=== PATIENT | female | born 1965 | race Caucasian/White ===

== ENCOUNTER 2019-06-01 07:14 | Emergency (ER) | payer OTHER ==
[2019-06-01] MEDS ORDERED: Sodium Chloride 0.9% 1,000 ML IV ONE (07:33)
[2019-06-01] MEDS ORDERED: Aspirin 81 MG Tab.Chew PO ONE (07:33)
[2019-06-01] MEDS ORDERED: LORazepam 2 MG/ML SDV IVPUSH ONE (07:45)
[2019-06-01] MEDS ORDERED: Ketorolac 30 MG/ML SDV IVPUSH ONE (07:45)
--- NOTE | 2019-06-01 08:06 | CT ---
INDICATION: Left arm numbness and pain. Pain radiating into the left shoulder and back. TECHNIQUE: Noncontrast head CT. FINDINGS: No intracranial hemorrhage or hydrocephalus. No mass effect or shift of midline structures. No calvarial or skullbase fractures. The included paranasal sinuses and mastoid air cells are clear. IMPRESSION: Negative noncontrast head CT. Please note that all CT scans at this facility use dose modulation, iterative reconstruction, and/or weight-based dosing when appropriate to reduce radiation dose to as low as reasonably achievable. Dictated by Nba Lou MD @ Jun 01 2019 8:04AM Signed by Dr. Nba Lou @ Jun 01 2019 8:05AM
--- NOTE | 2019-06-01 08:08 | CR ---
INDICATION: Pain. Shortness of breath. TECHNIQUE: AP portable chest. FINDINGS: Clear lungs. Normal heart size and pulmonary vascularity. Normal included skeletal thorax. IMPRESSION: Negative AP upright portable chest x-ray. Dictated by Nba Lou MD @ Jun 01 2019 8:05AM Signed by Dr. Nba Lou @ Jun 01 2019 8:06AM
--- NOTE | 2019-06-01 08:11 | EDM.PDOC ---
ED HPI GENERAL MEDICAL PROBLEM - General Chief Complaint: General Stated Complaint: LEFT ARM TINGLING, PAIN ALL OVER Time Seen by Provider: 06/01/19 08:09 Source of Information: Reports: Patient - History of Present Illness INITIAL COMMENTS - FREE TEXT/NARRATIVE: HISTORY AND PHYSICAL: History of present illness: [Patient presents with mid back pain radiating to left arm rated 7 out of 10 worsened by movement of left arm and applied pressure to paraspinous muscles in the left trapezius distribution no fever nausea vomiting chills sweats no chest pain shortness breath headache dizziness palpitation no bowel or urine symptoms no injury or trauma, pain began yesterday ] Review of systems: As per history of present illness and below otherwise all systems reviewed and negative. Past medical history: As per history of present illness and as reviewed below otherwise noncontributory. Surgical history: As per history of present illness and as reviewed below otherwise noncontributory. Social history: No reported history of drug or alcohol abuse. Family history: As per history of present illness and as reviewed below otherwise noncontributory. Physical exam: HEENT: Atraumatic, normocephalic, pupils reactive, negative for conjunctival pallor or scleral icterus, mucous membranes moist, throat clear, neck supple, nontender, trachea midline. Lungs: Clear to auscultation, breath sounds equal bilaterally, chest nontender. Heart: S1S2, regular, negative for clicks, rubs, or JVD. Abdomen: Soft, nondistended, nontender. Negative for masses or hepatosplenomegaly. Negative for costovertebral tenderness. Pelvis: Stable nontender. Genitourinary: Deferred. Rectal: Deferred. Extremities: Atraumatic, negative for cords or calf pain. Neurovascular unremarkable. Neuro: Awake, alert, oriented. Cranial nerves II through XII unremarkable. Cerebellum unremarkable. Motor and sensory unremarkable throughout. Exam nonfocal. Diagnostics: CC CMP UA troponin lipase EKG Chest 1 view ] Therapeutics: [ Toradol Ativan Aspirin EKG Chest 1 view ] Impression: muscle spasm, left shoulder girdle /left trapezius distribution Definitive disposition and diagnosis as appropriate pending reevaluation and review of above. 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: Musculoskeletal History: Reports: Fracture (left ankle) - Infectious Disease History Infectious Disease History: Reports: Chicken Pox - Past Surgical History Head Surgeries/Procedures: Reports: None Female Surgical History: Reports: Section Musculoskeletal Surgical History: Reports: Other (See Below) Social & Family History - Family History Family Medical History: Noncontributory - Tobacco Use Smoking Status *Q: Never Smoker - Caffeine Use Caffeine Use: Reports: None - Recreational Drug Use Recreational Drug Use: No ED ROS GENERAL - Review of Systems Review Of Systems: See Below ED EXAM, GENERAL - Physical Exam Exam: See Below Course - Vital Signs Last Recorded V/S: Last Vital Signs Temp 96.6 F 06/01/19 07:26 Pulse 66 06/01/19 07:26 Resp 17 06/01/19 07:26 BP 124/82 06/01/19 07:26 Pulse Ox 98 06/01/19 07:26 - Orders/Labs/Meds Orders: Active Orders 24 hr Category Date Time Status EKG Documentation Completion [RC] STAT Care 06/01/19 07:34 Active UA RFX HOLLI AND CULT IF INDIC [URIN] Stat Lab 06/01/19 07:33 Ordered Labs: Laboratory Tests 06/01/19 06/01/19 Range/Units 07:28 07:28 WBC 6.04 (4.0-11.0) K/uL RBC 4.93 (4.30-5.90) M/uL Hgb 14.7 (12.0-16.0) g/dL Hct 43.9 (36.0-46.0) % MCV 89.0 (80.0-98.0) fL MCH 29.8 (27.0-32.0) pg MCHC 33.5 (31.0-37.0) g/dL RDW Std Deviation 41.2 (28.0-62.0) fl RDW Coeff of Ellis 13 (11.0-15.0) % Plt Count 230 (150-400) K/uL MPV 9.80 (7.40-12.00) fL Neut % (Auto) 61.8 (48.0-80.0) % Lymph % (Auto) 26.5 (16.0-40.0) % Major % (Auto) 8.4 (0.0-15.0) % Eos % (Auto) 2.6 (0.0-7.0) % Baso % (Auto) 0.7 (0.0-1.5) % Neut # (Auto) 3.7 (1.4-5.7) K/uL Lymph # (Auto) 1.6 (0.6-2.4) K/uL Major # (Auto) 0.5 (0.0-0.8) K/uL Eos # (Auto) 0.2 (0.0-0.7) K/uL Baso # (Auto) 0.0 (0.0-0.1) K/uL Nucleated RBC % 0.0 /100WBC Nucleated RBCs # 0 K/uL Sodium 142 (136-145) mmol/L Potassium 4.1 (3.5-5.1) mmol/L Chloride 105 (98-107) mmol/L Carbon Dioxide 25.7 (21.0-32.0) mmol/L BUN 16 (7.0-18.0) mg/dL Creatinine 0.9 (0.6-1.0) mg/dL Est Cr Clr Drug Dosing 59.11 mL/min Estimated GFR (MDRD) > 60.0 ml/min Glucose 111 H (74-106) mg/dL Calcium 9.1 (8.5-10.1) mg/dL Total Bilirubin 0.5 (0.2-1.0) mg/dL AST 21 (15-37) IU/L ALT 26 (14-63) IU/L Alkaline Phosphatase 81 (46-116) U/L Troponin I < 0.050 (0.000-0.056) ng/mL Total Protein 7.3 (6.4-8.2) g/dL Albumin 3.8 (3.4-5.0) g/dL Globulin 3.5 (2.6-4.0) g/dL Albumin/Globulin Ratio 1.1 (0.9-1.6) Meds: Medications Discontinued Medications Generic Name Dose Route Start Last Admin Trade Name Freq PRN Reason Stop Dose Admin Aspirin 324 mg 06/01/19 07:33 06/01/19 07:40 Aspirin PO 06/01/19 07:34 324 mg ONETIME ONE Administration Sodium Chloride 1,000 mls @ 999 mls/hr 06/01/19 07:33 06/01/19 07:40 Normal Saline IV 06/01/19 08:33 999 mls/hr STAT ONE Administration Ketorolac Tromethamine 30 mg 06/01/19 07:45 06/01/19 08:25 Toradol IVPUSH 06/01/19 07:46 30 mg ONETIME ONE Administration Lorazepam 1 mg 06/01/19 07:45 06/01/19 08:14 Ativan IVPUSH 06/01/19 07:46 1 mg ONETIME ONE Administration Departure - Departure Time of Disposition: 08:34 Disposition: Home, Self-Care 01 Condition: Good Clinical Impression: Muscle spasm - Discharge Information Referrals: Manjula Farrar DO [Primary Care Provider] - Forms: ED Department Discharge Additional Instructions: Medication as prescribed Ice 20 minute intervals 3 times daily Return if symptoms persist or worsen Follow-up with primary care in 2 weeks sooner as needed [facility] - Primary [facility] [address] [place] [address] The following information is given to patients seen in the emergency department who are being discharged to home. This information is to outline your options for follow-up care. We provide all patients seen in our emergency department with a follow-up referral. The need for follow-up, as well as the timing and circumstances, are variable depending upon the specifics of your emergency department visit. If you don't have a primary care physician on staff, we will provide you with a referral. We always advise you to contact your personal physician following an emergency department visit to inform them of the circumstance of the visit and for follow-up with them and/or the need for any referrals to a consulting specialist. The emergency department will also refer you to a specialist when appropriate. This referral assures that you have the opportunity for follow-up care with a specialist. All of these measure are taken in an effort to provide you with optimal care, which includes your follow-up. Under all circumstances we always encourage you to contact your private physician who remains a resource for coordinating your care. When calling for follow-up care, please make the office aware that this follow-up is from your recent emergency room visit. If for any reason you are refused follow-up, please contact the [facility] emergency department at and asked to speak to the emergency department charge nurse. Sepsis Event Note - Evaluation Sepsis Screening Result: No Definite Risk - Focused Exam Vital Signs: Vital Signs Temp Pulse Resp BP Pulse Ox 06/01/19 07:26 96.6 F 66 17 124/82 98 Date Exam was Performed: 06/01/19 Time Exam was Performed: 08:33 - My Orders Last 24 Hours: My Active Orders 06/01/19 07:33 UA RFX HOLLI AND CULT IF INDIC [URIN] Stat 06/01/19 07:34 EKG Documentation Completion [RC] STAT - Assessment/Plan Last 24 Hours: My Active Orders 06/01/19 07:33 UA RFX HOLLI AND CULT IF INDIC [URIN] Stat 06/01/19 07:34 EKG Documentation Completion [RC] STAT
[2019-06-01 08:12] LABS: BLOOD UREA NITROGEN,BUN 16 mg/dL (7.0-18.0); CARBON DIOXIDE,CO2 25.7 mmol/L (21.0-32.0); CHLORIDE,CL 105 mmol/L (98-107); GLUCOSE RANDOM 111 mg/dL (74-106); POTASSIUM,K 4.1 mmol/L (3.5-5.1); SODIUM,NA 142 mmol/L (136-145)
[2019-06-01 09:10] VITALS: BP 121/65; PULSE 70
== END 2019-06-01 09:00 | disposition home or self-care (01) ==
LOC: MW.ED 07:14
DX: M62.838 Other muscle spasm (principal); K21.9 Gastro-esophageal reflux disease without esophagitis; Z88.5 Allergy status to narcotic agent; Z88.1 Allergy status to other antibiotic agents; Z79.899 Other long term (current) drug therapy
CPT/HCPCS: 36415; 70450; 71045; 80053; 81003; 84484; 85025; 93005; 96361; 96374; 96375; 99284; A9270; J1885; J2060; J7030